=== PATIENT | female | born 1990 | race Hispanic/Latino ===

== ENCOUNTER 2018-04-17 09:35 | Emergency (ER) | payer SELFPAY ==
[2018-04-17 09:46] VITALS: TEMP 98.3; O2SAT 97
--- NOTE | 2018-04-17 10:07 | ED.PDOC ---
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 SHE STARTED WITH VAGINAL BLEEDIN/SPOTTING WITH INTERMITTENT CRAMPS THREE DAYS AGO. HAS HAD THREE POSITIVE HOME TESTS AT HOME. DENIES ANY OTHER PROBLEMS. HAS HAD NO CARE SO FAR. HAS NO OB. - History of Present Illness Timing/Duration: other - THREE DAYS AGO Severity: mild Improving Factors: nothing Worsening Factors: nothing Associated Symptoms: denies symptoms Allergies/Adverse Reactions: Allergies NO KNOWN ALLERGY Allergy (Unverified 09/30/13 10:47) Home Medications: Ambulatory Orders Metformin HCl 850 mg PO BID 30 Days tab 04/17/18 Pioglitazone HCl [Actos] 15 mg PO DAILY #30 tab 04/17/18 Review of Systems - Review of Systems Constitutional: States: no symptoms reported EENTM: States: no symptoms reported Respiratory: States: no symptoms reported Cardiology: States: no symptoms reported Gastrointestinal/Abdominal: States: no symptoms reported Genitourinary: States: other - PELVIC PAIN Musculoskeletal: States: no symptoms reported Skin: States: no symptoms reported Neurological: States: no symptoms reported Past Medical History (General) - Patient Medical History Hx Seizures: No Hx Asthma: No Hx Cardiac Disorders: No Hx Congestive Heart Failure: No Hx Diabetes: Yes - GDM with this Hx Renal Disease: No Surgical History: no surgical history - Vaccination History Hx Influenza Vaccination: No - Social History Hx Substance Use: No - Female History Hx Last Menstrual Period: 02/12/13 Patient : Yes Expected Date of Delivery:: 11/19/13 Family Medical History - Family History Paternal Hx Family Diabetes: Yes - unkown type Father Name: Yovany Zamora Age (years): 39 Living Status: Still Living Hx Family Asthma: No Hx Family Congestive Heart Failure: No Hx Family Hypertension: No Hx Family Stroke: No Hx Cardiac Disease: No Hx Family Diabetes: Yes Hx Family Cancer: No Mother Name: Rebeakh Zamora Age (years): 39 Living Status: Still Living Hx Family Asthma: No Hx Family Congestive Heart Failure: No Hx Family Hypertension: No Hx Family Stroke: No Hx Cardiac Disease: No Hx Family Diabetes: No Hx Family Cancer: No Physical Exam - Physical Exam Eye Exam: bilateral normal Ears, Nose, Throat: hearing grossly normal Neck: non-tender Respiratory: lungs clear, normal breath sounds, no respiratory distress Cardiovascular/Chest: normal peripheral pulses, regular rate, rhythm, no edema, no gallop Peripheral Pulses: radial,right: 2+ Gastrointestinal/Abdominal: normal bowel sounds, non tender, soft Rectal Exam: deferred Back Exam: normal inspection 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 THE BIMANUAL EXAM: NO ADNEXAL MASSES. THE CERVIX IS FINGERT TIP OPENED. Progress - Results/Orders Results/Orders: Laboratory Results WBC 7.0 K/mm3 (4.8-10.8) 04/17/18 10:19 RBC 5.19 M/mm3 (4.20-5.40) 04/17/18 10:19 Hgb 14.5 gm/dL (12.0-16.0) 04/17/18 10:19 Hct 43.5 % (36.0-47.0) 04/17/18 10:19 MCV 83.8 fl (81.0-99.0) 04/17/18 10:19 MCH 28.0 pg (27.0-31.0) 04/17/18 10:19 MCHC 33.4 g/dL (33.0-37.0) 04/17/18 10:19 RDW 14.4 % (11.5-14.5) 04/17/18 10:19 Plt Count 170 K/mm3 (130-400) 04/17/18 10:19 MPV 9.7 fl (7.40-10.4) 04/17/18 10:19 Absolute Neuts (auto) 4.70 K/uL (1.8-6.8) 04/17/18 10:19 Absolute Lymphs (auto) 1.70 K/uL (1.0-3.4) 04/17/18 10:19 Absolute Monos (auto) 0.50 K/uL (0.2-0.8) 04/17/18 10:19 Absolute Eos (auto) 0.10 K/uL (0.0-0.4) 04/17/18 10:19 Absolute Basos (auto) 0.00 K/uL (0.0-0.1) 04/17/18 10:19 Neutrophils % 67.0 % (42.0-78.0) 04/17/18 10:19 Lymphocytes % 23.7 % (20.0-50.0) 04/17/18 10:19 Monocytes % 6.9 % (2.0-9.0) 04/17/18 10:19 Eosinophils % 1.9 % (1.0-5.0) 04/17/18 10:19 Basophils % 0.5 % (0.0-2.0) 04/17/18 10:19 Sodium 128 mmol/L (135-145) L 04/17/18 10:14 Potassium 4.0 mmol/L (3.6-5.0) 04/17/18 10:14 Chloride 97 mmol/L (101-111) L 04/17/18 10:14 Carbon Dioxide 21 mmol/L (21-31) 04/17/18 10:14 Anion Gap 14.0 (12-18) 04/17/18 10:14 BUN 10 mg/dL (7-18) 04/17/18 10:14 Creatinine 0.48 mg/dL (0.6-1.3) L 04/17/18 10:14 BUN/Creatinine Ratio 20.8 (10-20) H 04/17/18 10:14 Random Glucose 405 mg/dL (70-105) H* 04/17/18 10:14 Serum Osmolality 273.2 mOsm/L (275-295) L 04/17/18 10:14 Calcium 8.3 mg/dL (8.4-10.2) L 04/17/18 10:14 Total Bilirubin 0.3 mg/dL (0.2-1.0) 04/17/18 10:14 AST 20 IU/L (10-42) 04/17/18 10:14 ALT 17 IU/L (10-60) 04/17/18 10:14 Alkaline Phosphatase 94 IU/L (42-121) 04/17/18 10:14 Serum Total Protein 6.8 gm/dL (6.4-8.2) 04/17/18 10:14 Albumin 3.4 g/dl (3.2-5.5) 04/17/18 10:14 Globulin 3.4 gm/dL (2.3-3.5) 04/17/18 10:14 Albumin/Globulin Ratio 1.0 (1.1-1.9) L 04/17/18 10:14 Beta HCG, Quant > 1321.0 mIU/mL (0-4.9) H 04/17/18 10:14 Urine Color Yellow (Yellow) 04/17/18 10:25 Urine Appearance Sl cloudy (Clear) 04/17/18 10:25 Urine pH 6.0 (4.5-7.8) 04/17/18 10:25 Ur Specific [place] 1.010 (1.005-1.030) 04/17/18 10:25 Urine Protein Negative mg/dL 04/17/18 10:25 Urine Glucose (UA) >=1000 mg/dL (Negative) H 04/17/18 10:25 Urine Ketones Negative mg/dL (NEGATIVE) 04/17/18 10:25 Urine Blood Large (Negative) H 04/17/18 10:25 Urine Nitrite Negative 04/17/18 10:25 Urine Bilirubin Negative (NEGATIVE) 04/17/18 10:25 Urine Urobilinogen 0.2 mg/dL (0.2-1.0) 04/17/18 10:25 Ur Leukocyte Esterase Negative (Negative) 04/17/18 10:25 Urine RBC 20-30 /hpf H 04/17/18 10:25 Urine WBC 0 /hpf 04/17/18 10:25 Ur Epithelial Cells 10-20 /hpf 04/17/18 10:25 Urine Bacteria 1+ 04/17/18 10:25 Patient ABO/Rh Cancelled 04/17/18 10:14 Official sono report is still not reported. Preliminary non viable IUP. No cardiac activity. Departure - Departure Clinical Impression: Inevitable Diabetes mellitus Qualifiers: Diabetes mellitus type: type 2 Diabetes mellitus exterminator helper termite insulin use: without custodial use Diabetes mellitus complication status: without complication Qualified Code(s): E11.9 - Type 2 diabetes mellitus without complications Time of Disposition: 15:28 Disposition: Discharge to Home or Self Care Condition: Good Departure Forms: ED Discharge - Pt. Copy, Patient Portal Self Enrollment Diet: resume usual diet Prescriptions: Metformin HCl 850 mg PO BID 30 Days tab Pioglitazone HCl [Actos] 15 mg PO DAILY #30 tab Home Medications: Ambulatory Orders Metformin HCl 850 mg PO BID 30 Days tab 04/17/18 Pioglitazone HCl [Actos] 15 mg PO DAILY #30 tab 04/17/18 Additional Instructions: bed rest, return to the ed if bleeding worsens. F/U WITH OB OF CHOICE
--- NOTE | 2018-04-17 15:22 | US ---
EXAM DESCRIPTION: OB ,Early (0-14wks): Ultrasound. CLINICAL HISTORY: 27 years Female vaginal bleeding. . 3, para 2, AB 0. LMP 02/07/2018. EGA 9 weeks, 6 days. JORJE 11/14/2018. COMPARISON: None. TECHNIQUE: Transpelvic scanning through the urine filled bladder: Endovaginal scannin-dimensional and Doppler modes. FINDINGS: Uterus: 5.6 cm transverse measurement. Normal position. Gestational sac: Normal size and shape. AFV: Subjectively normal. pole: Visualized. Mean crown-rump length 9.7 mm corresponds to EGA 7 weeks and 0 days. Yolk sac: Not well seen. Subchorionic hemorrhage: Heterogeneous echoes around the gestational sac but no definite hemorrhage. heart tones: Not detected. Cul-de-sac: Trace. Comments: Single intrauterine demise. EGA 7 weeks and 0 days corresponds to JORJE 12/04/2018. Right ovary 2.4 x 1.8 x 1.8 cm. Normal waveform and color Doppler vascularity. No dominant cyst.. No adnexal mass or free fluid. Left ovary 2.5 x 2.1 x 1.9 cm. Normal waveform and color Doppler vascularity. No dominant cyst. No adnexal mass or free fluid. IMPRESSION: 1. Single intrauterine demise. EGA calculated by crown-rump length is 7 weeks and 0 days corresponding to JORJE 12/04/2018. This is 2 weeks and 6 days younger than EGA by menstrual dates. No myometrial mass or mass in the gestational sac was seen. Minimal fluid in the cul-de-sac. 2. Bilateral ovaries are unremarkable with no adnexal fluid or soft tissue mass. CRITICAL COMMUNICATION: The critical value was discussed directly in person by the almond blancher hand, Ms. Adriana Booker RDMS, with Dr. Young Thomas, who observed the scan, at approximately 1400 hours, on April 17, 2018. Electronically signed by: Oz Thomas MD 04/17/2018 3:21 PM MANAGER PLACEMENT
[2018-04-17 18:46] VITALS: BP 128/74
== END 2018-04-17 15:30 | disposition home or self-care (01) ==
LOC: ER 09:35
DX: O20.0 Threatened abortion (principal); O24.419 Gestational diabetes mellitus in pregnancy, unspecified control; Z3A.00 Weeks of gestation of pregnancy not specified

== ENCOUNTER 2018-04-18 19:58 | Emergency (ER) | payer SELFPAY ==
[2018-04-18 20:19] VITALS: TEMP 99.5
[2018-04-18] MEDS ORDERED: miSOPROStol 100 MCG TAB PR ONE (20:40)
[2018-04-18] MEDS ORDERED: ONDANSETRON ODT 8 MG TAB SL ONE ×2 (21:22)
--- NOTE | 2018-04-18 23:47 | ED.PDOC ---
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 She started having heavier bleeding this morning. She was seen here in the emergency room yesterday and had a ultrasound showing a intrauterine demise. She was already bleeding at that time. Blood type is O+. No symptoms of anemia. She has bled about 8 pads worth. Timing/Duration: 24 hours Severity: moderate Improving Factors: nothing Worsening Factors: nothing Associated Symptoms: denies symptoms Allergies/Adverse Reactions: Allergies NO KNOWN ALLERGY Allergy (Verified 04/18/18 21:05) Home Medications: Ambulatory Orders Metformin HCl 850 mg PO BID 30 Days tab 04/17/18 Pioglitazone HCl [Actos] 15 mg PO DAILY #30 tab 04/17/18 Review of Systems - Review of Systems Constitutional: States: no symptoms reported EENTM: States: no symptoms reported Respiratory: States: no symptoms reported Cardiology: States: no symptoms reported Gastrointestinal/Abdominal: States: no symptoms reported Genitourinary: States: see HPI Musculoskeletal: States: no symptoms reported Skin: States: no symptoms reported Neurological: States: no symptoms reported Endocrine: States: no symptoms reported All other Systems: No Change from Baseline Past Medical History (General) - Patient Medical History Hx Seizures: No Hx Stroke: No Hx Dementia: No Hx Asthma: No Hx of COPD: No Hx Cardiac Disorders: No Hx Congestive Heart Failure: No Hx Pacemaker: No Hx Hypertension: No Hx Thyroid Disease: No Hx Diabetes: Yes - GDM with this Hx Gastroesophageal Reflux: No Hx Renal Disease: No Hx Cancer: No Hx of HIV: No Hx Hepatitis C: No Hx MRSA: No Surgical History: no surgical history - Vaccination History Hx Influenza Vaccination: No - Social History Hx Substance Use: No - Female History Hx Last Menstrual Period: 02/11/18 Patient : Yes - current diagnosis of miscarriage Expected Date of Delivery:: 11/19/13 Family Medical History - Family History Paternal Hx Family Diabetes: Yes - unkown type Father Name: Yovany Zamora Age (years): 39 Living Status: Still Living Hx Family Asthma: No Hx Family Congestive Heart Failure: No Hx Family Hypertension: No Hx Family Stroke: No Hx Cardiac Disease: No Hx Family Diabetes: Yes Hx Family Cancer: No Mother Name: Rebekah Zamora Age (years): 39 Living Status: Still Living Hx Family Asthma: No Hx Family Congestive Heart Failure: No Hx Family Hypertension: No Hx Family Stroke: No Hx Cardiac Disease: No Hx Family Diabetes: No Hx Family Cancer: No Physical Exam - Physical Exam General Appearance: Alert, Comfortable, No apparent distress Eye Exam: bilateral normal Ears, Nose, Throat: hearing grossly normal, normal ENT inspection, normal pharynx Neck: full range of motion, supple Respiratory: lungs clear, normal breath sounds, no respiratory distress, no accessory muscle use Cardiovascular/Chest: normal peripheral pulses, regular rate, rhythm, no edema Peripheral Pulses: radial,right: 2+, radial,left: 2+, dorsalis pedis,right: 2+, dorsalis pedis,left: 2+ Gastrointestinal/Abdominal: non tender, soft Rectal Exam: other - pelvic exam shows blood clots in the vaginal vault followed by open cervical os-containing products of conception. Readings were used to remove the products of conception and these were collected and sent to pathology. 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, alert, normal mood/affect, oriented x 3 Skin Exam: normal color Comments: Vital Signs - 24 hr 04/18/18 04/18/18 04/18/18 19:58 21:00 22:00 Temperature 99.5 F Pulse Rate [ 80 72 67 monitor] Respiratory 18 16 16 Rate Blood Pressure 147/79 123/79 105/63 [Right Arm] O2 Sat by Pulse 100 100 99 Oximetry 04/18/18 23:00 Temperature Pulse Rate [ 73 monitor] Respiratory 16 Rate Blood Pressure 109/51 [Right Arm] O2 Sat by Pulse 98 Oximetry Progress - Progress Progress: 04/18/18 23:47 the patient's 27-year-old female whose blood type is O+ presenting to the emergency room secondary to increased bleeding due to undergoing a miscarriage. Products of conception were removed under speculum exam from the cervical os and sent to pathology. [place] Cytotec was used for hemostasis. Patient tolerated this well and has been monitored for several hours. ER warnings were given for any significant worsening. Follow-up with component assembler in 1-2 weeks. Departure - Departure Clinical Impression: Complete Disposition: Discharge to Home or Self Care Condition: Fair Departure Forms: ED Discharge - Pt. Copy, Patient Portal Self Enrollment Instructions: Dealing With Miscarriage, DI for Miscarriage Diet: regular diet Activity: increase activity as tolerated Home Medications: Ambulatory Orders Metformin HCl 850 mg PO BID 30 Days tab 04/17/18 Pioglitazone HCl [Actos] 15 mg PO DAILY #30 tab 04/17/18 Additional Instructions: the patient's 27-year-old female whose blood type is O+ presenting to the emergency room secondary to increased bleeding due to undergoing a miscarriage. Products of conception were removed under speculum exam from the cervical os and sent to pathology. [place] Cytotec was used for hemostasis. Patient tolerated this well and has been monitored for several hours. ER warnings were given for any significant worsening. Follow-up with component assembler in 1-2 weeks.
[2018-04-18 23:58] VITALS: BP 111/55; O2SAT 99
== END 2018-04-19 00:44 | disposition home or self-care (01) ==
LOC: ER 19:58
DX: O03.9 Complete or unspecified spontaneous abortion without complication (principal)